=== PATIENT | female | born 1995 | race Caucasian/White ===

== ENCOUNTER 2017-07-13 03:10 | Observation (INO) | payer OTHER, MEDICAID ==
[~2017-07-13] VITALS: Ht 160 cm; Wt 73.1 kg
[2017-07-13] VITALS (13 sets, daily range): BP systolic 124–153; BP diastolic 86–100; PULSE 59–102; TEMP 98.5–99.9
[~2017-07-13 03:10] MED LIST: MOTRIN 600600 MG/TAB PO; NORCO 325 MG-51 TAB PO; PHENERGAN 25 TA25 MG PO; PHENERGAN25 MG RC; PRENATAL1 TA7 PO
[2017-07-13 04:02] LABS: BASO % 0.3 % (0.0-2.0); GRAN # 8.5 (1.4-6.5); GRAN % 76.3 % (42.2-75.2); HEMATOCRIT 43.3 % (35.0-45.0); HEMOGLOBIN 14.1 g/dl (12.0-15.0); LYMPH # 1.4 (1.2-3.4); LYMPH % 12.4 % (20.0-51.0); MEAN CELL VOLUME 83 fl (80.0-95.0); MEAN CORPUSCULAR HEMOGLOBIN 27 pg (26.0-32.0); MEAN CORPUSCULAR HGB CONC 33 g/dl (33.0-37.0); MEAN PLATELET VOLUME 10.1 fl (7.4-10.4); MONO # 1.2 (0.1-0.6); MONO % 10.3 % (1.7-9.3); PLATELET COUNT 424 K/mm3 (130-400); RED BLOOD COUNT 5.24 M/mm3 (4.10-5.30); WHITE BLOOD COUNT 11.2 K/mm3 (4.8-10.8)
[2017-07-13 04:09] LABS: ALBUMIN 4.6 gm/dL (3.5-5.0); BILIRUBIN,TOTAL 6.9 mg/dL (0.0-1.0); CALCIUM 9.5 mg/dL (8.4-10.2); CREATININE, serum 0.66 mg/dL (0.52-1.25); POTASSIUM 3.2 mmol/L (3.4-5.0); TOTAL PROTEIN 8.3 gm/dL (6.4-8.2)
[2017-07-13 08:12] LABS: COLLECTION METHOD CLEAN CATCH
[2017-07-13 08:33] LABS: MUCOUS Present /lpf; PH 7 (5-8); SQUAMOUS EPITHELIAL 0-2 /hpf; URINE APPEARANCE Clear; URINE BACTERIA None Seen /hpf; URINE BILIRUBIN Positive (NEGATIVE); URINE BLOOD 1+ (NEGATIVE); URINE COLOR Amber; URINE GLUCOSE Negative (NEGATIVE); URINE KETONE 1+ (NEGATIVE); URINE LEUKOCYTE ESTERASE Negative (NEGATIVE); URINE PROTEIN(semi-quant) Negative (NEGATIVE); URINE UROBILINOGEN >=4.0 mg/dL (NEGATIVE)
[2017-07-14] VITALS (15 sets, daily range): BP systolic 101–129; BP diastolic 44–87; PULSE 66–101; TEMP 98–98.8
[2017-07-14 10:33] LABS: HEMATOCRIT 37.9 % (35.0-45.0); HEMOGLOBIN 12.4 g/dl (12.0-15.0); MEAN CELL VOLUME 84 fl (80.0-95.0); MEAN CORPUSCULAR HEMOGLOBIN 27 pg (26.0-32.0); MEAN CORPUSCULAR HGB CONC 33 g/dl (33.0-37.0); MEAN PLATELET VOLUME 10.5 fl (7.4-10.4); RED BLOOD COUNT 4.52 M/mm3 (4.10-5.30); WHITE BLOOD COUNT 8.5 K/mm3 (4.8-10.8)
[2017-07-14 10:35] LABS: ADD PATHOLOGY DIFF REVIEW NO; PLATELET COUNT 273 K/mm3 (130-400)
[2017-07-14 10:40] LABS: ADJUSTED CALCIUM 9.1 mg/dL (8.4-10.2); ALBUMIN 3.3 gm/dL (3.5-5.0); CALCIUM 8.5 mg/dL (8.4-10.2); CREATININE, serum 0.53 mg/dL (0.52-1.25); POTASSIUM 3.5 mmol/L (3.4-5.0); TOTAL PROTEIN 6.3 gm/dL (6.4-8.2)
[2017-07-14 11:18] LABS: BAND 2 % (0-10); EOSINOPHIL 1 % (0-4); LYMPHOCYTE 23 % (20.0-51.0); NEUTROPHILS 69 % (42.0-75.2); PLATELET ESTIMATE NORMAL (NORMAL); TOTAL CELLS COUNTED 100
[2017-07-14] MEDS ORDERED: DILAUDID 2MG TAB2 MG PO (15:25)
[2017-07-14] MEDS ORDERED: CIPRO 500MG TA500 MG PO (15:25)
[2017-07-14] MEDS ORDERED: FLAGYL500 MG PO (15:25)
[2017-07-14] MEDS ORDERED: COLACE 100100 MG/CAP PO (15:26)
[2017-07-14] MEDS ORDERED: MOTRIN 600600 MG/TAB PO (15:26)
[2017-07-15 01:35] VITALS: BP 140/90; PULSE 71; TEMP 99.1
[2017-07-15 03:19] VITALS: BP 131/92; PULSE 81; TEMP 98.2
[2017-07-15 07:00] VITALS: BP 112/59; PULSE 84; TEMP 98.4
[2017-07-15 08:52] LABS: BASO % 0.1 % (0.0-2.0); EOS % 0.1 % (0-4.0); GRAN # 14.5 (1.4-6.5); GRAN % 82.3 % (42.2-75.2); LYMPH # 1.7 (1.2-3.4); LYMPH % 9.6 % (20.0-51.0); MEAN CELL VOLUME 83 fl (80.0-95.0); MEAN CORPUSCULAR HGB CONC 33 g/dl (33.0-37.0); MEAN PLATELET VOLUME 10.4 fl (7.4-10.4); MONO # 1.2 (0.1-0.6); MONO % 6.5 % (1.7-9.3); PLATELET COUNT 297 K/mm3 (130-400); RED BLOOD COUNT 4.03 M/mm3 (4.10-5.30); WHITE BLOOD COUNT 17.6 K/mm3 (4.8-10.8)
[2017-07-15 08:54] LABS: HEMATOCRIT 33.6 % (35.0-45.0); HEMOGLOBIN 11.1 g/dl (12.0-15.0); MEAN CORPUSCULAR HEMOGLOBIN 28 pg (26.0-32.0)
[2017-07-15 09:03] LABS: ADJUSTED CALCIUM 9.2 mg/dL (8.4-10.2); BILIRUBIN,TOTAL 5.1 mg/dL (0.0-1.0); CALCIUM 8.4 mg/dL (8.4-10.2); CREATININE, serum 0.54 mg/dL (0.52-1.25); POTASSIUM 3.6 mmol/L (3.4-5.0); TOTAL PROTEIN 5.8 gm/dL (6.4-8.2)
== END 2017-07-15 13:22 | disposition home or self-care (01) ==
LOC: COL.ER 03:10 → OB 05:12
PROVIDERS: Emergency Medicine; Surgery
DX: K80.64 Calculus of gallbladder and bile duct with chronic cholecystitis without obstruction (principal); K83.8 Other specified diseases of biliary tract; K82.1 Hydrops of gallbladder; K21.9 Gastro-esophageal reflux disease without esophagitis; R12 Heartburn
CPT/HCPCS: A9284; C1769; G0378; J0744; J1100; J1170; J1885; J2250; J2405; J2550; J2704; J2710; J3010; J3480; J7030; J7120; Q9967

== ENCOUNTER 2017-07-20 22:32 | Inpatient (IN) | payer OTHER, MEDICAID ==
[~2017-07-20] VITALS: Ht 162.6 cm; Wt 70.6 kg
[~2017-07-20 22:32] MED LIST changes: +CIPRO 500MG TA500 MG PO; +COLACE 100100 MG/CAP PO; +DILAUDID 2MG TAB2 MG PO; +FLAGYL500 MG PO
[2017-07-20 23:08] VITALS: BP 123/78; PULSE 111
[2017-07-20 23:09] LABS: HEMATOCRIT 39.9 % (35.0-45.0); HEMOGLOBIN 12.9 g/dl (12.0-15.0); MEAN CELL VOLUME 85 fl (80.0-95.0); MEAN CORPUSCULAR HEMOGLOBIN 27 pg (26.0-32.0); MEAN CORPUSCULAR HGB CONC 32 g/dl (33.0-37.0); MEAN PLATELET VOLUME 9.9 fl (7.4-10.4); PLATELET COUNT 463 K/mm3 (130-400)
[2017-07-20 23:14] LABS: ADD PATHOLOGY DIFF REVIEW NO; WHITE BLOOD COUNT 28.8 K/mm3 (4.8-10.8)
[2017-07-20 23:15] LABS: INR 1.2 (0.8-3.0); PROTHROMBIN TIME 13.4 SECONDS (9.7-12.8)
[2017-07-20 23:17] LABS: PARTIAL THROMBOPLASTIN TIME 31.1 SECONDS (26.0-37.0)
[2017-07-20 23:19] LABS: ADJUSTED CALCIUM 9.3 mg/dL (8.4-10.2); BILIRUBIN,TOTAL 3.6 mg/dL (0.0-1.0); CALCIUM 9.3 mg/dL (8.4-10.2); CREATININE, serum 0.56 mg/dL (0.52-1.25); MAGNESIUM 1.6 mg/dL (1.6-2.3); POTASSIUM 4.4 mmol/L (3.4-5.0); TOTAL PROTEIN 7.9 gm/dL (6.4-8.2)
[2017-07-20 23:24] LABS: BAND 9 % (0-10); LYMPHOCYTE 5 % (20.0-51.0); NEUTROPHILS 82 % (42.0-75.2); TOTAL CELLS COUNTED 100
[2017-07-20 23:25] LABS: HYPOCHROMIA 1+; MICROCYTOSIS 1+
[2017-07-20 23:26] LABS: ANISOCYTOSIS 2+
[2017-07-21] VITALS (12 sets, daily range): BP systolic 99–145; BP diastolic 46–76; PULSE 88–116; TEMP 98.3–101.7
[2017-07-21 00:21] LABS: COLLECTION METHOD CLEAN CATCH
[2017-07-21 00:28] LABS: PH 7 (5-8); SQUAMOUS EPITHELIAL 0-2 /hpf; URINE APPEARANCE Clear; URINE BACTERIA None Seen /hpf; URINE BILIRUBIN Negative (NEGATIVE); URINE BLOOD 1+ (NEGATIVE); URINE COLOR Yellow; URINE GLUCOSE Negative (NEGATIVE); URINE KETONE Negative (NEGATIVE); URINE LEUKOCYTE ESTERASE Negative (NEGATIVE); URINE PROTEIN(semi-quant) Negative (NEGATIVE); URINE RBC 0-2 /hpf; URINE UROBILINOGEN Negative (NEGATIVE); URINE WBC 0-2 /hpf
[2017-07-22] VITALS (19 sets, daily range): BP systolic 84–119; BP diastolic 50–87; PULSE 94–124; TEMP 98.3–103.1
[2017-07-22 07:34] LABS: BASO % 0.2 % (0.0-2.0); EOS % 0.1 % (0-4.0); GRAN # 17.3 (1.4-6.5); GRAN % 85.4 % (42.2-75.2); LYMPH # 1.4 (1.2-3.4); LYMPH % 6.8 % (20.0-51.0); MEAN CELL VOLUME 86 fl (80.0-95.0); MEAN CORPUSCULAR HGB CONC 32 g/dl (33.0-37.0); MEAN PLATELET VOLUME 10.3 fl (7.4-10.4); MONO # 1.3 (0.1-0.6); MONO % 6.3 % (1.7-9.3); RED BLOOD COUNT 3.76 M/mm3 (4.10-5.30)
[2017-07-22 07:46] LABS: HEMATOCRIT 32.3 % (35.0-45.0); HEMOGLOBIN 10.3 g/dl (12.0-15.0); MEAN CORPUSCULAR HEMOGLOBIN 27 pg (26.0-32.0)
[2017-07-22 07:47] LABS: PLATELET COUNT 342 K/mm3 (130-400)
[2017-07-22 07:48] LABS: ADJUSTED CALCIUM 9.2 mg/dL (8.4-10.2); ALBUMIN 3.1 gm/dL (3.5-5.0); CALCIUM 8.5 mg/dL (8.4-10.2); CREATININE, serum 0.52 mg/dL (0.52-1.25); POTASSIUM 3.9 mmol/L (3.4-5.0); TOTAL PROTEIN 6.5 gm/dL (6.4-8.2)
[2017-07-22 07:49] LABS: WHITE BLOOD COUNT 20.3 K/mm3 (4.8-10.8)
[2017-07-23] VITALS (8 sets, daily range): BP systolic 98–119; BP diastolic 50–70; PULSE 93–120; TEMP 98–102.8
[2017-07-23 09:27] LABS: BASO % 0.3 % (0.0-2.0); EOS % 0.3 % (0-4.0); GRAN # 11.6 (1.4-6.5); GRAN % 83.1 % (42.2-75.2); LYMPH # 1.1 (1.2-3.4); LYMPH % 8.2 % (20.0-51.0); MEAN CELL VOLUME 85 fl (80.0-95.0); MEAN CORPUSCULAR HGB CONC 32 g/dl (33.0-37.0); MEAN PLATELET VOLUME 9.7 fl (7.4-10.4); MONO % 6.9 % (1.7-9.3); PLATELET COUNT 364 K/mm3 (130-400); RED BLOOD COUNT 3.67 M/mm3 (4.10-5.30); WHITE BLOOD COUNT 13.9 K/mm3 (4.8-10.8)
[2017-07-23 09:31] LABS: HEMATOCRIT 31.2 % (35.0-45.0); MEAN CORPUSCULAR HEMOGLOBIN 27 pg (26.0-32.0)
[2017-07-23 09:38] LABS: ADJUSTED CALCIUM 9.3 mg/dL (8.4-10.2); BILIRUBIN,TOTAL 1.7 mg/dL (0.0-1.0); CALCIUM 8.5 mg/dL (8.4-10.2); CREATININE, serum 0.5 mg/dL (0.52-1.25); POTASSIUM 3.4 mmol/L (3.4-5.0); TOTAL PROTEIN 6.6 gm/dL (6.4-8.2)
[2017-07-24 01:56] VITALS: BP 96/61; PULSE 89; TEMP 98.1
[2017-07-24 05:20] VITALS: BP 110/78; PULSE 101; TEMP 99.7
[2017-07-24 09:11] VITALS: BP 100/65; PULSE 67; TEMP 98.4
[2017-07-24 12:37] LABS: BASO # 0.1 (0.0-0.2); BASO % 0.4 % (0.0-2.0); EOS # 0.1 (0.0-0.7); EOS % 0.6 % (0-4.0); GRAN # 10.6 (1.4-6.5); GRAN % 75.5 % (42.2-75.2); LYMPH # 1.8 (1.2-3.4); LYMPH % 13.1 % (20.0-51.0); MEAN CELL VOLUME 84 fl (80.0-95.0); MEAN CORPUSCULAR HGB CONC 32 g/dl (33.0-37.0); MEAN PLATELET VOLUME 9.7 fl (7.4-10.4); MONO # 1.3 (0.1-0.6); MONO % 9.5 % (1.7-9.3)
[2017-07-24 12:38] LABS: HEMATOCRIT 33.7 % (35.0-45.0); HEMOGLOBIN 10.9 g/dl (12.0-15.0); MEAN CORPUSCULAR HEMOGLOBIN 27 pg (26.0-32.0); PLATELET COUNT 513 K/mm3 (130-400)
[2017-07-24 13:54] VITALS: BP 87/55; PULSE 114; TEMP 98.4
[2017-07-24 17:18] VITALS: BP 108/56; PULSE 107; TEMP 97.5
[2017-07-24 22:36] VITALS: BP 93/52; PULSE 123; TEMP 99.8
[2017-07-25 02:21] VITALS: BP 110/65; PULSE 124; TEMP 100.7
[2017-07-25 05:36] VITALS: BP 98/66; PULSE 92; TEMP 99.3
[2017-07-25 07:22] LABS: BASO # 0.1 (0.0-0.2); BASO % 0.5 % (0.0-2.0); EOS % 0.3 % (0-4.0); GRAN # 11.3 (1.4-6.5); GRAN % 77.6 % (42.2-75.2); LYMPH # 1.7 (1.2-3.4); LYMPH % 11.5 % (20.0-51.0); MEAN CELL VOLUME 84 fl (80.0-95.0); MEAN CORPUSCULAR HGB CONC 32 g/dl (33.0-37.0); MEAN PLATELET VOLUME 9.7 fl (7.4-10.4); MONO # 1.3 (0.1-0.6); MONO % 8.7 % (1.7-9.3); PLATELET COUNT 559 K/mm3 (130-400); RED BLOOD COUNT 3.76 M/mm3 (4.10-5.30); WHITE BLOOD COUNT 14.6 K/mm3 (4.8-10.8)
[2017-07-25 07:27] LABS: HEMATOCRIT 31.7 % (35.0-45.0); HEMOGLOBIN 10.2 g/dl (12.0-15.0); MEAN CORPUSCULAR HEMOGLOBIN 27 pg (26.0-32.0)
[2017-07-25 07:32] LABS: CALCIUM 8.9 mg/dL (8.4-10.2); CREATININE, serum 0.59 mg/dL (0.52-1.25); POTASSIUM 3.8 mmol/L (3.4-5.0)
[2017-07-25 09:06] VITALS: BP 103/64; PULSE 115; TEMP 99.2
[2017-07-25 13:12] VITALS: BP 116/68; PULSE 107; TEMP 99.5
[2017-07-25 17:08] VITALS: BP 96/53; PULSE 101; TEMP 98.4
[2017-07-25 22:00] VITALS: BP 105/62; PULSE 102; TEMP 98.5
[2017-07-26] VITALS (7 sets, daily range): BP systolic 100–125; BP diastolic 55–69; PULSE 62–102; TEMP 98.3–99.9
[2017-07-26 07:15] LABS: MEAN CELL VOLUME 83 fl (80.0-95.0); MEAN CORPUSCULAR HGB CONC 32 g/dl (33.0-37.0); MEAN PLATELET VOLUME 9.3 fl (7.4-10.4); PLATELET COUNT 580 K/mm3 (130-400); RED BLOOD COUNT 3.64 M/mm3 (4.10-5.30); WHITE BLOOD COUNT 11.9 K/mm3 (4.8-10.8)
[2017-07-26 07:18] LABS: HEMATOCRIT 30.3 % (35.0-45.0); HEMOGLOBIN 9.8 g/dl (12.0-15.0); MEAN CORPUSCULAR HEMOGLOBIN 27 pg (26.0-32.0)
[2017-07-26 07:21] LABS: ADJUSTED CALCIUM 9.2 mg/dL (8.4-10.2); ALBUMIN 3.1 gm/dL (3.5-5.0); BILIRUBIN,TOTAL 1.5 mg/dL (0.0-1.0); CALCIUM 8.5 mg/dL (8.4-10.2); CREATININE, serum 0.61 mg/dL (0.52-1.25); MAGNESIUM 1.8 mg/dL (1.6-2.3); POTASSIUM 3.5 mmol/L (3.4-5.0); TOTAL PROTEIN 6.8 gm/dL (6.4-8.2)
[2017-07-26 08:58] LABS: ADD PATHOLOGY DIFF REVIEW YES; ANISOCYTOSIS 1+; BAND 32 % (0-10); LYMPHOCYTE 12 % (20.0-51.0); MICROCYTOSIS 1+; MYELOCYTE 2 % (0-0); NEUTROPHILS 53 % (42.0-75.2); PLATELET ESTIMATE INCREASED (NORMAL); TOTAL CELLS COUNTED 100
[2017-07-27 06:34] VITALS: BP 104/65; PULSE 87; TEMP 98
[2017-07-27 06:55] LABS: MEAN CELL VOLUME 84 fl (80.0-95.0); MEAN CORPUSCULAR HGB CONC 32 g/dl (33.0-37.0); MEAN PLATELET VOLUME 9.1 fl (7.4-10.4); PLATELET COUNT 641 K/mm3 (130-400); RED BLOOD COUNT 3.73 M/mm3 (4.10-5.30); WHITE BLOOD COUNT 12.7 K/mm3 (4.8-10.8)
[2017-07-27 06:56] LABS: ADD PATHOLOGY DIFF REVIEW NO; HEMATOCRIT 31.2 % (35.0-45.0); MEAN CORPUSCULAR HEMOGLOBIN 27 pg (26.0-32.0)
[2017-07-27 07:03] LABS: ADJUSTED CALCIUM 9.4 mg/dL (8.4-10.2); ALBUMIN 3.1 gm/dL (3.5-5.0); BILIRUBIN,TOTAL 1.4 mg/dL (0.0-1.0); CALCIUM 8.7 mg/dL (8.4-10.2); CREATININE, serum 0.55 mg/dL (0.52-1.25); POTASSIUM 3.6 mmol/L (3.4-5.0); TOTAL PROTEIN 6.8 gm/dL (6.4-8.2)
[2017-07-27 07:33] LABS: BAND 3 % (0-10); LYMPHOCYTE 22 % (20.0-51.0); NEUTROPHILS 66 % (42.0-75.2); TOTAL CELLS COUNTED 100
[2017-07-27 07:34] LABS: MICROCYTOSIS 1+; PLATELET ESTIMATE INCREASED (NORMAL)
[2017-07-27 07:36] LABS: ANISOCYTOSIS 1+
[2017-07-27 08:53] LABS: PATHOLOGY DIFF REVIEW OK +
[2017-07-27 09:50] VITALS: BP 101/68; PULSE 107; TEMP 98.8
[2017-07-27 14:21] VITALS: BP 112/69; PULSE 102; TEMP 98.6
[2017-07-27 17:21] VITALS: BP 115/69; PULSE 85; TEMP 98.5
[2017-07-27 22:27] VITALS: BP 93/62; PULSE 79; TEMP 98
[2017-07-28] VITALS (13 sets, daily range): BP systolic 84–124; BP diastolic 50–84; PULSE 89–99; TEMP 98.3–98.9
[2017-07-28 07:01] LABS: MEAN CELL VOLUME 82 fl (80.0-95.0); MEAN CORPUSCULAR HGB CONC 33 g/dl (33.0-37.0); MEAN PLATELET VOLUME 8.7 fl (7.4-10.4); RED BLOOD COUNT 3.87 M/mm3 (4.10-5.30); WHITE BLOOD COUNT 14.6 K/mm3 (4.8-10.8)
[2017-07-28 07:03] LABS: ADD PATHOLOGY DIFF REVIEW NO; HEMATOCRIT 31.9 % (35.0-45.0); HEMOGLOBIN 10.4 g/dl (12.0-15.0); MEAN CORPUSCULAR HEMOGLOBIN 27 pg (26.0-32.0); PLATELET COUNT 764 K/mm3 (130-400)
[2017-07-28 07:16] LABS: ADJUSTED CALCIUM 9.5 mg/dL (8.4-10.2); ALBUMIN 3.3 gm/dL (3.5-5.0); BILIRUBIN,TOTAL 1.2 mg/dL (0.0-1.0); CALCIUM 8.9 mg/dL (8.4-10.2); CREATININE, serum 0.58 mg/dL (0.52-1.25); POTASSIUM 3.8 mmol/L (3.4-5.0); TOTAL PROTEIN 7.2 gm/dL (6.4-8.2)
[2017-07-28 07:42] LABS: BAND 6 % (0-10); EOSINOPHIL 2 % (0-4); LYMPHOCYTE 19 % (20.0-51.0); NEUTROPHILS 71 % (42.0-75.2); PLATELET ESTIMATE INCREASED (NORMAL); POLYCHROMASIA 1+; TOTAL CELLS COUNTED 100
[2017-07-29 02:00] VITALS: BP 114/58; PULSE 97; TEMP 98.4
[2017-07-29 05:07] VITALS: BP 112/71; PULSE 98; TEMP 99.4
[2017-07-29 09:32] LABS: ADJUSTED CALCIUM 9.1 mg/dL (8.4-10.2); ALBUMIN 3.1 gm/dL (3.5-5.0); BILIRUBIN,TOTAL 1.3 mg/dL (0.0-1.0); CALCIUM 8.4 mg/dL (8.4-10.2); CREATININE, serum 0.44 mg/dL (0.52-1.25); POTASSIUM 3.5 mmol/L (3.4-5.0); TOTAL PROTEIN 6.8 gm/dL (6.4-8.2)
[2017-07-29 09:35] LABS: MEAN CELL VOLUME 84 fl (80.0-95.0); MEAN CORPUSCULAR HGB CONC 32 g/dl (33.0-37.0); PLATELET COUNT 717 K/mm3 (130-400); RED BLOOD COUNT 3.57 M/mm3 (4.10-5.30); WHITE BLOOD COUNT 13.6 K/mm3 (4.8-10.8)
[2017-07-29 09:38] LABS: HEMOGLOBIN 9.7 g/dl (12.0-15.0); MEAN CORPUSCULAR HEMOGLOBIN 27 pg (26.0-32.0)
[2017-07-29 09:39] LABS: ADD PATHOLOGY DIFF REVIEW NO
[2017-07-29 09:55] VITALS: BP 117/59; PULSE 109; TEMP 98.4
[2017-07-29 09:55] LABS: BAND 12 % (0-10); LYMPHOCYTE 20 % (20.0-51.0); METAMYELOCYTE 3 % (0-0); NEUTROPHILS 62 % (42.0-75.2); PLATELET ESTIMATE INCREASED (NORMAL); TOTAL CELLS COUNTED 100
[2017-07-29 13:04] VITALS: BP 115/81; PULSE 107; TEMP 97.7
[2017-07-29 17:39] VITALS: BP 113/70; PULSE 116; TEMP 99.9
[2017-07-29 22:10] VITALS: BP 129/74; PULSE 109; TEMP 101.6
[2017-07-30 01:42] VITALS: BP 111/72; PULSE 105; TEMP 98.9
[2017-07-30 05:32] VITALS: BP 111/60; PULSE 96; TEMP 99.9
[2017-07-30 07:21] LABS: MEAN CELL VOLUME 84 fl (80.0-95.0); MEAN CORPUSCULAR HGB CONC 32 g/dl (33.0-37.0); MEAN PLATELET VOLUME 8.9 fl (7.4-10.4); PLATELET COUNT 779 K/mm3 (130-400); RED BLOOD COUNT 3.72 M/mm3 (4.10-5.30); WHITE BLOOD COUNT 13.9 K/mm3 (4.8-10.8)
[2017-07-30 07:26] LABS: HEMATOCRIT 31.1 % (35.0-45.0); MEAN CORPUSCULAR HEMOGLOBIN 27 pg (26.0-32.0)
[2017-07-30 07:47] LABS: ADJUSTED CALCIUM 9.5 mg/dL (8.4-10.2); ALBUMIN 3.1 gm/dL (3.5-5.0); BILIRUBIN,TOTAL 1.1 mg/dL (0.0-1.0); CALCIUM 8.8 mg/dL (8.4-10.2); CREATININE, serum 0.52 mg/dL (0.52-1.25); POTASSIUM 3.6 mmol/L (3.4-5.0); TOTAL PROTEIN 7.1 gm/dL (6.4-8.2)
[2017-07-30 09:29] VITALS: BP 100/62; PULSE 116; TEMP 99.8
[2017-07-30 13:37] VITALS: BP 105/77; PULSE 103; TEMP 99.2
[2017-07-30 18:02] VITALS: BP 92/58; PULSE 115; TEMP 100.2
[2017-07-30 21:20] VITALS: BP 108/73; PULSE 112; TEMP 99.9
[2017-07-31 00:25] VITALS: TEMP 98.2
[2017-07-31 05:53] VITALS: BP 111/78; PULSE 86; TEMP 97.7
[2017-07-31 09:59] VITALS: BP 94/60; PULSE 86; TEMP 98.5
[2017-07-31 14:30] VITALS: BP 103/69; PULSE 101; TEMP 98.7
[2017-07-31 18:10] VITALS: BP 108/66; PULSE 98; TEMP 98.1
[2017-07-31 21:23] VITALS: BP 108/67; PULSE 102; TEMP 99.3
[2017-08-01 05:04] VITALS: BP 91/51; PULSE 107; TEMP 98.6
[2017-08-01 09:27] LABS: MEAN CELL VOLUME 84 fl (80.0-95.0); MEAN CORPUSCULAR HGB CONC 31 g/dl (33.0-37.0); MEAN PLATELET VOLUME 8.4 fl (7.4-10.4); PLATELET COUNT 757 K/mm3 (130-400); RED BLOOD COUNT 3.75 M/mm3 (4.10-5.30); WHITE BLOOD COUNT 8.7 K/mm3 (4.8-10.8)
[2017-08-01 09:30] LABS: HEMATOCRIT 31.6 % (35.0-45.0); HEMOGLOBIN 9.9 g/dl (12.0-15.0); MEAN CORPUSCULAR HEMOGLOBIN 26 pg (26.0-32.0)
[2017-08-01 09:31] LABS: ADD PATHOLOGY DIFF REVIEW NO
[2017-08-01 09:36] LABS: ADJUSTED CALCIUM 9.5 mg/dL (8.4-10.2); BILIRUBIN,TOTAL 0.8 mg/dL (0.0-1.0); CALCIUM 8.7 mg/dL (8.4-10.2); CREATININE, serum 0.49 mg/dL (0.52-1.25); POTASSIUM 3.9 mmol/L (3.4-5.0); TOTAL PROTEIN 6.9 gm/dL (6.4-8.2)
[2017-08-01 10:35] VITALS: BP 135/77; PULSE 112; TEMP 98.4
[2017-08-01 10:36] LABS: BAND 11 % (0-10); EOSINOPHIL 2 % (0-4); LYMPHOCYTE 26 % (20.0-51.0); NEUTROPHILS 59 % (42.0-75.2); PLATELET ESTIMATE INCREASED (NORMAL); TOTAL CELLS COUNTED 100; TOXIC GRANULATION PRESENT
[2017-08-01] MEDS ORDERED: SENOKOT S 50 MG1 TAB PO (10:48)
[2017-08-01] MEDS ORDERED: DILAUDID 2MG TAB2 MG PO (10:48)
[2017-08-01] MEDS ORDERED: FLAGYL500 MG PO (10:49)
[2017-08-01] MEDS ORDERED: LEVAQUIN 750MG750 M1 PO (10:49)
[2017-08-01 13:47] VITALS: BP 111/70; PULSE 110; TEMP 98.4
== END 2017-08-01 14:30 | disposition home or self-care (01) | DRG 862 ==
LOC: COL.ER 22:32 → SURG 07-21 00:45
PROVIDERS: Emergency Medicine; Internal Medicine Gastroenterology; Surgery
PROC: 0W9G3ZX Drainage of Peritoneal Cavity, Percutaneous Approach, Diagnostic (ICD-10-PCS; 2017-07-22)
PROC: 0F798DZ Dilation of Common Bile Duct with Intraluminal Device, Via Natural or Artificial Opening Endoscopic (ICD-10-PCS; 2017-07-28)
PROC: 0FC98ZZ Extirpation of Matter from Common Bile Duct, Via Natural or Artificial Opening Endoscopic (ICD-10-PCS; principal; 2017-07-28 14:00)
PROC: 0W993ZX Drainage of Right Pleural Cavity, Percutaneous Approach, Diagnostic (ICD-10-PCS; 2017-07-31)
DX: K68.11 Postprocedural retroperitoneal abscess (principal); K83.1 Obstruction of bile duct; J90 Pleural effusion, not elsewhere classified; E87.1 Hypo-osmolality and hyponatremia; B95.4 Other streptococcus as the cause of diseases classified elsewhere
CPT/HCPCS: A9284; A9537; C1729; C1769; C2625; J1170; J1650; J1885; J1956; J2250; J2405; J2550; J2704; J3010; J7030; J7040; J7050; J7120; Q9967

== ENCOUNTER 2017-08-04 12:15 | Emergency (ER) | payer OTHER, MEDICAID ==
[~2017-08-04] VITALS: Ht 162.6 cm; Wt 68.3 kg
[~2017-08-04 12:15] MED LIST changes: +LEVAQUIN 750MG750 M1 PO; +SENOKOT S 50 MG1 TAB PO
[2017-08-04 12:53] LABS: HEMATOCRIT 37.5 % (35.0-45.0); MEAN CELL VOLUME 84 fl (80.0-95.0); MEAN CORPUSCULAR HEMOGLOBIN 26 pg (26.0-32.0); MEAN CORPUSCULAR HGB CONC 32 g/dl (33.0-37.0); MEAN PLATELET VOLUME 8.7 fl (7.4-10.4); PLATELET COUNT 1072 K/mm3 (130-400); RED BLOOD COUNT 4.47 M/mm3 (4.10-5.30); WHITE BLOOD COUNT 10.4 K/mm3 (4.8-10.8)
[2017-08-04 12:55] LABS: HEMOGLOBIN 11.8 g/dl (12.0-15.0)
[2017-08-04 12:56] LABS: ADD PATHOLOGY DIFF REVIEW NO
[2017-08-04 13:19] LABS: ALBUMIN 3.8 gm/dL (3.5-5.0); C-REACTIVE PROTEIN 3.9 mg/dL (0.0-0.9); CALCIUM 9.8 mg/dL (8.4-10.2); CREATININE, serum 0.51 mg/dL (0.52-1.25); POTASSIUM 4.9 mmol/L (3.4-5.0); TOTAL PROTEIN 7.8 gm/dL (6.4-8.2)
[2017-08-04 13:25] LABS: COLLECTION METHOD CLEAN CATCH
[2017-08-04 13:30] LABS: MUCOUS Present /lpf; PH 6 (5-8); URINE APPEARANCE Clear; URINE BACTERIA Rare /hpf; URINE BILIRUBIN Negative (NEGATIVE); URINE BLOOD Negative (NEGATIVE); URINE COLOR Yellow; URINE GLUCOSE Negative (NEGATIVE); URINE KETONE Negative (NEGATIVE); URINE LEUKOCYTE ESTERASE Trace (NEGATIVE); URINE PROTEIN(semi-quant) Negative (NEGATIVE); URINE RBC 0-2 /hpf; URINE UROBILINOGEN Negative (NEGATIVE)
[2017-08-04] MEDS ORDERED: ZOFRAN ODT4 MG PO (13:51)
[2017-08-04 14:03] VITALS: BP 102/67; PULSE 118; TEMP 97.9
[2017-08-04 14:18] LABS: BAND 5 % (0-10); EOSINOPHIL 2 % (0-4); LYMPHOCYTE 34 % (20.0-51.0); METAMYELOCYTE 1 % (0-0); NEUTROPHILS 54 % (42.0-75.2); PLATELET ESTIMATE INCREASED (NORMAL); TOTAL CELLS COUNTED 100
[2017-08-04 14:19] LABS: ANISOCYTOSIS 1+; HYPOCHROMIA 1+; MICROCYTOSIS 1+
== END 2017-08-04 14:04 | disposition home or self-care (01) ==
LOC: COL.ER 12:15
PROVIDERS: Family Medicine
DX: R11.10 Vomiting, unspecified (principal); E86.0 Dehydration; Z90.49 Acquired absence of other specified parts of digestive tract
CPT/HCPCS: J2405; J7030

== ENCOUNTER 2017-08-09 20:56 | Emergency (ER) | payer OTHER, MEDICAID ==
[~2017-08-09] VITALS: Ht 162.6 cm; Wt 68.2 kg
[~2017-08-09 20:56] MED LIST changes: +ZOFRAN ODT4 MG PO
[2017-08-09 20:59] VITALS: TEMP 99
[2017-08-09] MEDS ORDERED: ASPIRIN 81M81 MG/TA2 PO (21:22)
[2017-08-09 21:44] LABS: BASO # 0.1 (0.0-0.2); BASO % 0.8 % (0.0-2.0); EOS # 0.2 (0.0-0.7); EOS % 1.7 % (0-4.0); GRAN # 8.9 (1.4-6.5); GRAN % 67.1 % (42.2-75.2); HEMATOCRIT 34.7 % (35.0-45.0); HEMOGLOBIN 10.9 g/dl (12.0-15.0); LYMPH % 22.6 % (20.0-51.0); MEAN CELL VOLUME 84 fl (80.0-95.0); MEAN CORPUSCULAR HEMOGLOBIN 26 pg (26.0-32.0); MEAN CORPUSCULAR HGB CONC 31 g/dl (33.0-37.0); MEAN PLATELET VOLUME 8.8 fl (7.4-10.4); MONO # 0.9 (0.1-0.6); MONO % 7.1 % (1.7-9.3); PLATELET COUNT 689 K/mm3 (130-400); RED BLOOD COUNT 4.15 M/mm3 (4.10-5.30); WHITE BLOOD COUNT 13.3 K/mm3 (4.8-10.8)
[2017-08-09 22:00] LABS: ADJUSTED CALCIUM 9.2 mg/dL (8.4-10.2); ALANINE AMINOTRANSFERASE 34 U/L (9-52); ALBUMIN 3.9 gm/dL (3.5-5.0); ALKALINE PHOSPHATASE 197 U/L (50-136); ANION GAP 10 mmol/L (7-16); BILIRUBIN,TOTAL 0.8 mg/dL (0.0-1.0); BLOOD UREA NITROGEN 12 mg/dL (7-17); CALCIUM 9.1 mg/dL (8.4-10.2); CARBON DIOXIDE 26 mmol/L (22-30); CHLORIDE 101 mmol/L (98-107); CREATININE, serum 0.67 mg/dL (0.52-1.25); GLUCOSE 94 mg/dL (74-106); POTASSIUM 3.6 mmol/L (3.4-5.0); SODIUM 137 mmol/L (137-145); TOTAL PROTEIN 7.6 gm/dL (6.4-8.2)
[2017-08-09 22:11] LABS: TROPONIN-I < 0.012 ng/mL (0.000-0.034)
[2017-08-09 23:52] VITALS: BP 96/70; PULSE 100
== END 2017-08-09 23:54 | disposition home or self-care (01) ==
LOC: COL.ER 20:56
PROVIDERS: Emergency Medicine
DX: J90 Pleural effusion, not elsewhere classified (principal); Z90.49 Acquired absence of other specified parts of digestive tract; Z79.82 Long term (current) use of aspirin
CPT/HCPCS: J7030; J7050; Q9967

== ENCOUNTER 2017-08-26 08:28 | Day surgery (SDC) | payer OTHER, BC, MEDICAID ==
[~2017-08-26] VITALS: Ht 162.6 cm; Wt 68.2 kg
[~2017-08-26 08:28] MED LIST changes: +ASPIRIN 81M81 MG/TA2 PO
[2017-08-26 08:57] VITALS: BP 112/77; PULSE 98; TEMP 98.6
[2017-08-26 10:29] VITALS: BP 100/57; PULSE 78
[2017-08-26 10:44] VITALS: BP 104/64; BP 104/65; PULSE 77
[2017-08-26 10:59] VITALS: BP 107/69; PULSE 68
[2017-08-26 11:12] VITALS: BP 99/58; PULSE 77
== END 2017-08-26 11:03 | disposition home or self-care (01) ==
LOC: SDCO 08:28
DX: Z46.59 Encounter for fitting and adjustment of other gastrointestinal appliance and device (principal); K21.9 Gastro-esophageal reflux disease without esophagitis
CPT/HCPCS: OP; C1769; J2704; J3010; J7030; Q9967

== ENCOUNTER → 2017-12-20 | Outpatient (CLI) | payer BC | LOC: COL.RAD 08:30 | DX: R10.11 Right upper quadrant pain (principal); Z90.49 Acquired absence of other specified parts of digestive tract | CPT/HCPCS: Q9967 ==

== ENCOUNTER 2019-05-11 09:58 | Day surgery (SDC) | payer BC, MEDICAID ==
[~2019-05-11] VITALS: Ht 162.6 cm; Wt 70.4 kg
[2019-05-11 10:25] VITALS: BP 116/75; PULSE 78; TEMP 99
[2019-05-11] MEDS ORDERED: ADVIL200 MG PO (10:37)
[2019-05-11 11:55] VITALS: BP 101/64; PULSE 86; TEMP 98.2
--- NOTE | 2019-05-11 11:55 | NUR ---
TO BAY 8 PER CART FROM ENDOSCOPY FOLLOWING AN ERCP. AMBULATED TO RECLINER WITH ASSIST AND TOLERATED WELL. MOTHER AT BEDSIDE. DENIES PAIN OR DISCOMFORT. RECEIVED SPRITE.
[2019-05-11 12:10] VITALS: BP 110/71; PULSE 70
--- NOTE | 2019-05-11 12:10 | NUR ---
RECEIVED GLASS OF WATER. DENIES WANTING ANYTHING TO EAT OR DRINK.
[2019-05-11 12:25] VITALS: BP 101/75; PULSE 61
--- NOTE | 2019-05-11 12:25 | NUR ---
PATIENT RESTING AND USING HER PHONE.
[2019-05-11 12:50] VITALS: BP 107/83; PULSE 60
--- NOTE | 2019-05-11 12:50 | NUR ---
DR PASTOR INTO TALK WITH PATIENT AND MOTHER.
--- NOTE | 2019-05-11 13:00 | NUR ---
RECEIVED DISCHARGE INSTRUCTIONS AND VERBALIZED UNDERSTANDING. DISCONTINUED IV AND INT- CATHETER INTACT PATIENT GETTING DRESSED
--- NOTE | 2019-05-11 13:10 | NUR ---
DISCHARGED PER WC BY NURSING STAFF TO PRIVATE CAR IN CARE OF MOTHER-JENNY.
== END 2019-05-11 13:15 | disposition home or self-care (01) ==
LOC: SDCO 09:58
DX: K83.8 Other specified diseases of biliary tract (principal); K31.9 Disease of stomach and duodenum, unspecified; Z90.49 Acquired absence of other specified parts of digestive tract
CPT/HCPCS: C1769; J2704; J3010; J7030; Q9967

== ENCOUNTER 2019-12-14 14:17 | Emergency (ER) | payer BC, MEDICAID ==
[~2019-12-14] VITALS: Ht 162.6 cm; Wt 72.7 kg
[~2019-12-14 14:17] MED LIST changes: +ADVIL200 MG PO
[2019-12-14 14:25] VITALS: BP 109/76; TEMP 98.8
[2019-12-14 15:02] LABS: COLLECTION METHOD CLEAN CATCH
[2019-12-14 15:09] LABS: BASO % 0.6 % (0.0-2.0); EOS # 0.1 (0.0-0.7); EOS % 1.4 % (0-4.0); GRAN # 3.4 (1.4-6.5); HEMATOCRIT 39.8 % (37.0-47.0); HEMOGLOBIN 12.7 g/dl (12.5-16.0); LYMPH # 2.4 (1.2-3.4); LYMPH % 37.6 % (20.0-51.0); MEAN CELL VOLUME 85 fl (80.0-100.0); MEAN CORPUSCULAR HEMOGLOBIN 27 pg (27.0-31.0); MEAN CORPUSCULAR HGB CONC 32 g/dl (33.0-37.0); MEAN PLATELET VOLUME 10.4 fl (7.4-10.4); MONO # 0.4 (0.1-0.6); MONO % 6.4 % (1.7-9.3); PLATELET COUNT 347 K/mm3 (130-400); REDCELL DISTRIBUTION WIDTH-CV 14.1 % (11.5-14.5)
[2019-12-14 15:13] LABS: MUCOUS Present /lpf; PH 5 (5-8); SQUAMOUS EPITHELIAL 0-2 /hpf; URINE APPEARANCE Clear; URINE BACTERIA None Seen /hpf; URINE BILIRUBIN Negative (NEGATIVE); URINE BLOOD 1+ (NEGATIVE); URINE COLOR Straw; URINE GLUCOSE Negative (NEGATIVE); URINE KETONE Negative (NEGATIVE); URINE LEUKOCYTE ESTERASE Negative (NEGATIVE); URINE NITRATE Negative (NEGATIVE); URINE PROTEIN(semi-quant) Negative (NEGATIVE); URINE RBC 0-2 /hpf; URINE UROBILINOGEN Negative (NEGATIVE)
[2019-12-14 15:21] LABS: ALANINE AMINOTRANSFERASE 42 U/L (4-34); ALBUMIN 4.3 gm/dL (3.5-5.0); ALKALINE PHOSPHATASE 92 U/L (50-136); ANION GAP 6 mmol/L (7-16); AST,SGOT 37 U/L (15-37); BILIRUBIN,TOTAL 0.2 mg/dL (0.0-1.0); BLOOD UREA NITROGEN 14 mg/dL (7-17); CALCIUM 9.1 mg/dL (8.4-10.2); CARBON DIOXIDE 27 mmol/L (22-30); CHLORIDE 104 mmol/L (98-107); CREATININE, serum 0.76 (0.52-1.25); GLUCOSE 77 mg/dL (74-106); LIPASE 81 U/L (23-300); POTASSIUM 4.1 mmol/L (3.4-5.0); SODIUM 137 mmol/L (137-145); TOTAL PROTEIN 8.2 gm/dL (6.4-8.2)
[2019-12-14 15:22] LABS: C-REACTIVE PROTEIN < 0.5 mg/dL (0.0-0.9)
[2019-12-14 15:45] VITALS: PULSE 91
== END 2019-12-14 15:45 | disposition home or self-care (01) ==
LOC: COL.ER 14:17
PROVIDERS: Nurse Practitioner
DX: R10.11 Right upper quadrant pain (principal)

== ENCOUNTER 2020-01-08 08:03 | Day surgery (SDC) | payer BC, MEDICAID ==
[~2020-01-08] VITALS: Ht 162.6 cm; Wt 76.9 kg
[2020-01-08 08:35] VITALS: BP 105/67; PULSE 86; TEMP 98.1
--- NOTE | 2020-01-08 08:39 | NUR ---
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
[2020-01-08] MEDS ORDERED: MOTRIN 600600 MG/TAB PO (11:52)
[2020-01-08] MEDS ORDERED: PERCOCET 325 MG1 TA2 PO (11:52)
[2020-01-08] MEDS ORDERED: COLACE 100100 MG/CAP PO (11:52)
[2020-01-08] MEDS ORDERED: Work release (11:56)
[2020-01-08 12:12] VITALS: BP 103/65; PULSE 85; TEMP 97.9
--- NOTE | 2020-01-08 12:12 | NUR ---
TO RM 2 PER CART FROM PACU. ALERT ORIENTED X3, TALKING TO STAFF. C/O PAIN 2/10. DENIES NAUSEA OR VOMITING. INCISIONS CLEAN DRY INTACT.
[2020-01-08 12:25] VITALS: BP 96/50; PULSE 86
--- NOTE | 2020-01-08 12:25 | NUR ---
RECEIVED WATER, SITTING UP AND TAKING SIPS
[2020-01-08 12:40] VITALS: BP 79/54; PULSE 77
--- NOTE | 2020-01-08 12:40 | NUR ---
RECEIVED CRACKERS AND TOLERATING WELL.
[2020-01-08 12:55] VITALS: BP 91/58; PULSE 84
[2020-01-08 13:10] VITALS: BP 99/58; PULSE 79
--- NOTE | 2020-01-08 13:10 | NUR ---
ATE 100% AND TOLERATED WELL.
--- NOTE | 2020-01-08 13:15 | NUR ---
UP TO BATHROOM AND VOIDED. AMBULATED BACK TO RM AND TOLERATED WELL DISCONTINUED IV AND INT
--- NOTE | 2020-01-08 13:35 | NUR ---
RECEIVED IV AND INT-CATHETER INTACT
--- NOTE | 2020-01-08 13:44 | NUR ---
DISCHARGED PER WC BY NURSING STAFF TO PRIVATE CAR IN CARE OF MOTHER-JENNY.
== END 2020-01-08 13:46 | disposition home or self-care (01) ==
LOC: SDCO 08:03
DX: K91.89 Other postprocedural complications and disorders of digestive system (principal); Z90.49 Acquired absence of other specified parts of digestive tract; Z83.3 Family history of diabetes mellitus
CPT/HCPCS: J0690; J1100; J1170; J1885; J2370; J2405; J2704; J3010; J7120

== ENCOUNTER 2021-02-07 08:55 | Emergency (ER) | payer BC, MEDICAID ==
[~2021-02-07] VITALS: Ht 162.6 cm; Wt 76.8 kg
[~2021-02-07 08:55] MED LIST changes: +PERCOCET 325 MG1 TA2 PO; +Work release
[2021-02-07 09:08] VITALS: TEMP 99
[2021-02-07] MEDS ORDERED: LEXAPRO20 MG (09:27)
[2021-02-07] MEDS ORDERED: DESYREL 50MG50 MG PO (09:28)
[2021-02-07 10:35] LABS: BASO # 0.1 (0.0-0.2); BASO % 1.2 % (0.0-2.0); EOS # 0.1 (0.0-0.7); EOS % 1.7 % (0-4.0); GRAN % 47.9 % (42.2-75.2); HEMATOCRIT 41.1 % (37.0-47.0); HEMOGLOBIN 13.3 g/dl (12.5-16.0); LYMPH # 1.7 (1.2-3.4); MEAN CELL VOLUME 85 fl (80.0-100.0); MEAN CORPUSCULAR HEMOGLOBIN 28 pg (27.0-31.0); MEAN CORPUSCULAR HGB CONC 32 g/dl (33.0-37.0); MEAN PLATELET VOLUME 10.3 fl (7.4-10.4); MONO # 0.4 (0.1-0.6); MONO % 8.7 % (1.7-9.3); PLATELET COUNT 346 K/mm3 (130-400); RED BLOOD COUNT 4.82 M/mm3 (4.10-5.30); REDCELL DISTRIBUTION WIDTH-CV 14.6 % (11.5-14.5)
[2021-02-07 10:44] LABS: ALBUMIN 4.2 gm/dL (3.5-5.0); BILIRUBIN,TOTAL 0.4 mg/dL (0.0-1.0); CALCIUM 9.2 mg/dL (8.4-10.2); CREATININE, serum 0.58 (0.52-1.25); POTASSIUM 4.1 mmol/L (3.4-5.0)
[2021-02-07 11:40] LABS: COLLECTION METHOD CLEAN CATCH
[2021-02-07 12:07] LABS: MUCOUS Present /lpf; PH 9 (5-8); SQUAMOUS EPITHELIAL 0-2 /hpf; URINE APPEARANCE Hazy; URINE BACTERIA Rare /hpf; URINE BILIRUBIN Negative (NEGATIVE); URINE BLOOD 3+ (NEGATIVE); URINE COLOR Yellow; URINE GLUCOSE Negative (NEGATIVE); URINE KETONE Negative (NEGATIVE); URINE LEUKOCYTE ESTERASE Negative (NEGATIVE); URINE NITRATE Negative (NEGATIVE); URINE PROTEIN(semi-quant) Negative (NEGATIVE); URINE RBC >50 /hpf; URINE UROBILINOGEN Negative (NEGATIVE)
[2021-02-07 13:00] VITALS: BP 119/80; PULSE 72
== END 2021-02-07 13:01 | disposition home or self-care (01) ==
LOC: COL.ER 08:55
PROVIDERS: Physician Assistant
DX: K29.70 Gastritis, unspecified, without bleeding (principal); F32.9 Major depressive disorder, single episode, unspecified; F41.9 Anxiety disorder, unspecified; Z79.899 Other long term (current) drug therapy; Z32.02 Encounter for pregnancy test, result negative
CPT/HCPCS: J7030

== ENCOUNTER → 2021-08-18 | Outpatient (CLI) | payer BC, MEDICAID ==
[~2021-08-18] MED LIST changes: +DESYREL 50MG50 MG PO; +LEXAPRO20 MG
== END ==
LOC: COL.RAD 06:35
DX: R19.7 Diarrhea, unspecified (principal); R11.0 Nausea; R13.13 Dysphagia, pharyngeal phase; R10.84 Generalized abdominal pain
CPT/HCPCS: A9541

== ENCOUNTER → 2021-08-27 | Outpatient (CLI) | payer BC, MEDICAID | LOC: MC.RAD 07:21 | DX: N63.20 Unspecified lump in the left breast, unspecified quadrant (principal) ==

== ENCOUNTER 2023-06-18 13:47 | Emergency (ER) | payer MEDICAID ==
[~2023-06-18] VITALS: Ht 162.6 cm; Wt 68.2 kg
[2023-06-18 14:05] VITALS: BP 119/84; PULSE 105; TEMP 98.3
== END 2023-06-18 19:20 | disposition home or self-care (01) ==
LOC: COL.ER 13:47
DX: S93.402A Sprain of unspecified ligament of left ankle, initial encounter (principal); X58.XXXA Exposure to other specified factors, initial encounter; Y92.89 Other specified places as the place of occurrence of the external cause; Y99.0 Civilian activity done for income or pay

== ENCOUNTER 2023-09-11 16:27 | Emergency (ER) | payer MEDICAID ==
[~2023-09-11] VITALS: Ht 162.6 cm; Wt 68.2 kg
[2023-09-11 17:08] LABS: BASO # 0.1 K/mm3 (0.0-0.2); BASO % 0.7 % (0.0-2.0); EOS # 0.1 K/mm3 (0.0-0.7); GRAN % 64.9 % (42.2-75.2); HEMATOCRIT 48.3 % (37.0-47.0); HEMOGLOBIN 16.1 g/dl (12.5-16.0); LYMPH % 26.3 % (20.0-51.0); MEAN CELL VOLUME 90 fl (80.0-100.0); MEAN CORPUSCULAR HEMOGLOBIN 30 pg (27-31); MEAN CORPUSCULAR HGB CONC 33 g/dl (33.0-37.0); MONO # 0.5 K/mm3 (0.1-0.6); MONO % 6.7 % (1.7-9.3); PLATELET COUNT 417 K/mm3 (130-400); RED BLOOD COUNT 5.34 M/mm3 (4.10-5.30); REDCELL DISTRIBUTION WIDTH-CV 12.9 % (11.5-14.5)
[2023-09-11 17:11] LABS: ALBUMIN 4.1 gm/dL (3.5-5.0); BILIRUBIN,TOTAL 0.6 mg/dL (0.2-1.2); CALCIUM 9.5 mg/dL (8.4-10.2); CREATININE, serum 0.72 mg/dL (0.57-1.11); POTASSIUM 4.3 mmol/L (3.5-4.5); TOTAL PROTEIN 8.4 gm/dL (6.2-8.1)
[2023-09-11] MEDS ORDERED: LORazepam 0.5 MG TAB PO ONE (18:15)
[2023-09-11] MEDS ORDERED: Ketorolac 30 MG/ML VIAL IM ONE (18:15)
[2023-09-11 18:34] VITALS: BP 106/74; PULSE 81; TEMP 97.4
== END 2023-09-11 18:55 | disposition home or self-care (01) ==
LOC: COL.ER 16:27
PROVIDERS: Physician Assistant
DX: R07.81 Pleurodynia (principal); F17.290 Nicotine dependence, other tobacco product, uncomplicated
CPT/HCPCS: J1885

== ENCOUNTER 2023-10-23 15:11 | Emergency (ER) | payer MEDICAID ==
[~2023-10-23] VITALS: Ht 162.6 cm; Wt 68.2 kg
[2023-10-23 15:22] VITALS: TEMP 98.7
[2023-10-23] MEDS ORDERED: Ondansetron 4 MG/2 ML VIAL IV ONE (15:45)
[2023-10-23] MEDS ORDERED: NS 500 ML IV ONE (15:45)
[2023-10-23] MEDS ORDERED: Ketorolac 15 MG/ML VIAL IV ONE (15:45)
[2023-10-23 16:11] LABS: HEMATOCRIT 42.6 % (37.0-47.0); HEMOGLOBIN 14.1 g/dl (12.5-16.0); MEAN CELL VOLUME 90 fl (80.0-100.0); MEAN CORPUSCULAR HEMOGLOBIN 30 pg (27-31); MEAN CORPUSCULAR HGB CONC 33 g/dl (33.0-37.0); MEAN PLATELET VOLUME 9.9 fl (7.4-10.4); PLATELET COUNT 333 K/mm3 (130-400); RED BLOOD COUNT 4.75 M/mm3 (4.10-5.30); REDCELL DISTRIBUTION WIDTH-CV 13.1 % (11.5-14.5)
[2023-10-23 16:31] LABS: CALCIUM 9.5 mg/dL (8.4-10.2); CREATININE, serum 0.69 mg/dL (0.57-1.11); POTASSIUM 3.9 mmol/L (3.5-4.5)
[2023-10-23] MEDS ORDERED: ZOFRAN 4MG T4 MG/TAB PO (17:24)
[2023-10-23] MEDS ORDERED: TORADOL 10MG TA10 MG PO (17:24)
[2023-10-23 17:28] LABS: COLLECTION METHOD CLEAN CATCH
[2023-10-23 17:37] LABS: URINE APPEARANCE CLOUDY (CLEAR/HAZY); URINE BLOOD 3+ (NEGATIVE); URINE COLOR YELLOW (YELLOW); URINE GLUCOSE NEGATIVE (NEGATIVE); URINE KETONE NEGATIVE (NEGATIVE); URINE NITRATE POSITIVE (NEGATIVE); URINE PROTEIN(semi-quant) NEGATIVE (NEGATIVE); URINE UROBILINOGEN 0.2 E.U/dL (0.2-1.0)
[2023-10-23 17:40] VITALS: BP 112/85; PULSE 69
== END 2023-10-23 17:40 | disposition home or self-care (01) ==
LOC: COL.ER 15:11
PROVIDERS: Emergency Medicine
DX: N92.0 Excessive and frequent menstruation with regular cycle (principal); R11.2 Nausea with vomiting, unspecified
CPT/HCPCS: J1885; J2405; J7040